=== PATIENT | female | born 1960 | race Caucasian/White ===

== ENCOUNTER 2019-01-15 11:53 | Observation (INO) ==
[2019-01-15 12:41] LABS: Basophils # 0.1 K/mcL (0.0-0.2); Eosinophils # 0.1 K/mcL (0.0-0.6); Eosinophils % 2.2 %; Hematocrit 41.2 % (35.3-44.9); Hemoglobin 13.7 g/dL (11.5-15.4); Immature Granulocytes % 0.5 % (0-4); Lymphocytes # 2.4 K/mcL (0.6-4.6); Lymphocytes % 40.7 %; Mean Corpuscular HGB Conc 33.3 g/dL (31.6-35.5); Mean Corpuscular Hemoglobin 30.4 pg (28.0-33.3); Mean Corpuscular Volume 91.6 fL (83.0-100.0); Mean Platelet Volume 9.6 fL (9.4-12.4); Monocytes # 0.6 K/mcL (0.0-1.3); Monocytes % 9.2 %; Neutrophils # 2.8 K/mcL (1.6-8.9); Platelet Count 344 K/mcL (140-400); Segmented Neutrophils % 46.4 %
[2019-01-15 12:52] LABS: Prothrombin Time 11.4 Seconds (9.4-12.1)
[2019-01-15 12:55] LABS: Activated Partial Thrombo Time 30.5 Seconds (26.0-36.0)
[2019-01-15] MEDS ORDERED: Aspirin 81 MG TAB.CHEW PO SCH (13:15)
[2019-01-15 13:17] LABS: BUN/Creatinine Ratio 19 (6-26); Blood Urea Nitrogen 14 mg/dL (6-20); Calcium 10.4 mg/dL (8.6-10.3); Carbon Dioxide 26 mEq/L (23-29); Chloride 105 mEq/L (98-107); Glucose 99 mg/dL (70-105); Osmolality,Calculated 291 (280-300); Potassium 4.1 mEq/L (3.5-5.1); Sodium 140 mEq/L (136-145); Troponin I < 0.03 ng/mL (< 0.04); eGFR For African Americans > 60 (> 60); eGFR For Non-African Americans > 60 (> 60)
--- NOTE | 2019-01-15 14:32 | Emergency Department Note ---
Disposition Clinical Impression: Chest pain Qualifiers: Chest pain type: unspecified Qualified Code(s): R07.9 - Chest pain, unspecified Disposition: Admitted As Inpatient Condition: Good Time of Disposition: 14:00 Chest Pain HPI - General Chief Complaint: ED Chest Pain Stated Complaint: chest pain Time Seen by Provider: 01/15/19 12:45 Source: patient Mode of arrival: ambulatory Limitations: no limitations Vital Signs Reviewed: Yes Nursing Notes Reviewed: Yes - History of Present Illness Severity scale (1-10): 3 - Related Data Home Medications Medication Instructions Recorded Confirmed No Known Home Drugs 01/15/19 01/15/19 Allergies Allergy/AdvReac Type Severity Reaction Status Date / Time No Known Allergies Allergy Verified 01/15/19 12:04 All systems ED: reviewed and negative except as stated. Review of Systems: As Per HPI Chest Pain PMH - Past Medical History Medical history: Reports: hypertension Course Vital Signs Temperature 98.1 F 01/15/19 12:03 Pulse Rate 76 01/15/19 12:03 Respiratory Rate 18 01/15/19 12:03 Blood Pressure 143/80 01/15/19 12:03 O2 Sat by Pulse Oximetry 95 01/15/19 12:03 Temperature 97.9 F 01/16/19 11:16 Pulse Rate 61 01/16/19 11:16 Respiratory Rate 16 01/16/19 11:16 Blood Pressure 133/82 01/16/19 11:16 O2 Sat by Pulse Oximetry 96 01/16/19 11:16 Oxygen Delivery Oxygen Delivery Room Air Chest Pain - Lab Data Result diagrams: 01/16/19 04:03 01/16/19 04:03 Lab Results 01/15/19 01/15/19 01/15/19 Range/Units 12:10 12:10 12:10 WBC 6.0 (4.3-11.1) K/mcL RBC 4.50 (3.82-4.97) M/mcL Hgb 13.7 (11.5-15.4) g/dL Hct 41.2 (35.3-44.9) % MCV 91.6 (83.0-100.0) fL MCH 30.4 (28.0-33.3) pg MCHC 33.3 (31.6-35.5) g/dL RDW 12.0 (11.5-14.5) % Plt Count 344 (140-400) K/mcL MPV 9.6 (9.4-12.4) fL Immature Gran % 0.5 (0-4) % Seg Neutrophils % 46.4 % Lymphocytes % 40.7 % Monocytes % 9.2 % Eosinophils % 2.2 % Basophils % 1.0 % Neutrophils # 2.8 (1.6-8.9) K/mcL Lymphocytes # 2.4 (0.6-4.6) K/mcL Monocytes # 0.6 (0.0-1.3) K/mcL Eosinophils # 0.1 (0.0-0.6) K/mcL Basophils # 0.1 (0.0-0.2) K/mcL PT 11.4 (9.4-12.1) Seconds INR 1.0 APTT 30.5 (26.0-36.0) Seconds Sodium 140 (136-145) mEq/L Potassium 4.1 (3.5-5.1) mEq/L Chloride 105 (98-107) mEq/L Carbon Dioxide 26 (23-29) mEq/L BUN 14 (6-20) mg/dL Creatinine 0.74 (0.60-1.20) mg/dL Est GFR ( Amer) > 60 (> 60) Est GFR (Non-Af Amer) > 60 (> 60) BUN/Creatinine Ratio 19 (6-26) Glucose 99 (70-105) mg/dL Calculated Osmolality 291 (280-300) Calcium 10.4 H (8.6-10.3) mg/dL Troponin I < 0.03 (< 0.04) ng/mL Attestation Statement - Attestation Attestation: I, Hilario Guzman, examined this patient and my medical decision-making was reviewed with the TRAFFIC ENUMERATOR/PA/Advanced Practice Nurse/Resident Physician. I agree with the documented findings, disposition and treatment plan as described except to the extent set forth below. 58 you female presents to the ED after acute onset cp. Pt reports pain was central chest, without radiation. +associated SOB and nausea but without associated diaphoresis or palpitiations or syncope. Denies recent fever, chills, trauma. +multiple similar episodes over the past two months but she has not been evaluated by cardiology. Pt took ASA and nitro prior to arrival which relieved her pain. No history of previous cardiac disease. +history of htn but denies HLD, DM, tobacco abuse. Family history of CAD in grandfather and the brother has amyloidosis. I reviewed the EKG with the resident and agree with t sonya interpretation. Initial troponin was negative. Patient has heart score of 4. She will be admitted to the hospitalist for further care and evaluation.
[2019-01-15] MEDS ORDERED: Acetaminophen 325 MG TABLET PO ONE (14:59)
[2019-01-15] MEDS ORDERED: Naloxone 0.4 MG/ML INJ IVP PRN (15:24)
[2019-01-15] MEDS ORDERED: Ondansetron 4 MG/2 ML VIAL IVP PRN (15:24)
[2019-01-15] MEDS ORDERED: *HR* HYDROcodone/Acet 5/325 mg TABLET PO PRN (15:24)
--- NOTE | 2019-01-15 15:24 | Emergency Department Note ---
Disposition Clinical Impression: Chest pain Qualifiers: Chest pain type: unspecified Qualified Code(s): R07.9 - Chest pain, unspecified Disposition: Admitted As Inpatient Condition: Good Time of Disposition: 15:38 General Adult HPI - General Chief complaint: ED Chest Pain Stated complaint: chest pain Time Seen by Provider: 01/15/19 12:45 Source: patient Mode of arrival: ambulatory Limitations: no limitations Nursing Notes Reviewed: Yes Vital Signs Reviewed: Yes - History of Present Illness HPI Narrative: Female patient presenting complaints from complaining of right-sided chest pain. Did have associated nausea with the pain earlier. Lasted around 15 minutes. Did take 2 baby aspirin at home and a nitroglycerin glycerin with relief of the pain. No cardiac history for herself however her only history is positive for this. Has never had a cardiac evaluation. She states that she is feeling better at this time. Did have associated shortness of breath while the pain was there but is gone at this time. Also the like her heart was "flip flopping" while the pain was present. Patient reports the pain started when she was g etting ready to leave the house. She reports she was not under any increased stress recently. She is not exercising. Pain Scale: 3 - Related Data Home Medications Medication Instructions Recorded Confirmed No Known Home Drugs 01/15/19 01/15/19 Allergies Allergy/AdvReac Type Severity Reaction Status Date / Time No Known Allergies Allergy Verified 01/15/19 12:04 All systems ED: reviewed and negative except as stated. Review of Systems: As Per HPI Constitutional: Denies: fever, chills Cardiovascular: Reports: chest pain, palpitations. Denies: syncope Respiratory: Denies: cough, dyspnea Gastrointestinal: Reports: nausea (When she was having the pain earlier.). Denies: abdominal pain, vomiting, diarrhea Past Medical History - Past Medical History Attestation: Yes The following information was validated with the patient. Source: patient Medical history: Reports: hypertension Physical Exam - General Limitations: no limitations General appearance: alert, in no apparent distress - Head Head exam: atraumatic, normocephalic, normal inspection - Eye Eye exam: Present: normal appearance, PERRL, EOMI - ENT ENT exam: normal exam, normal oropharynx, mucous membranes moist - Neck Neck exam: Present: normal inspection, full ROM, trachea midline - Chest Chest inspection: Present: normal inspection, symmetric chest wall rise - Respiratory Respiratory exam: Present: normal lung sounds bilaterally - Cardiovascular Cardiovascular exam: Present: regular rate, normal rhythm, normal heart sounds - Abdominal Exam Abdominal exam: Present: soft, Non-Tender. Absent: tenderness, distention, guarding, rebound, rigidity - Extremities Exam Extremities exam: Present: normal inspection, full ROM, normal capillary refill. Absent: tenderness, pedal edema, calf tenderness - Back Exam Back exam: Present: normal inspection, full ROM. Absent: tenderness, CVA tenderness (R), CVA tenderness (L) - Neurological Exam Neurological exam: Present: alert, oriented X3 - Psychiatric Psychiatric exam: Present: normal affect, normal mood - Skin Skin exam: Present: warm, dry, intact, normal color. Absent: rash, cyanosis, diaphoresis Course Course Narrative: Patient appears well resting in bed at this time. Does have a history of the pain previously. Story is concerning for possible cardiac cause. No signs of acute ischemia however on EKG. She is in the normal sinus rhythm does have a sinus arrhythmia. Symptoms have resolved with aspirin and nitroglycerin use. We did provide her with 2 more aspirin she took 2 at home. We did discuss options with the patient and family and they are agreeable with admission for further cardiac evaluation today. We will admit patient to the hospital for f urther evaluation. Initial troponin was negative. Chest x-ray is not concerning. Vital Signs Temperature 98.1 F 01/15/19 12:03 Pulse Rate 76 01/15/19 12:03 Respiratory Rate 18 01/15/19 12:03 Blood Pressure 143/80 01/15/19 12:03 O2 Sat by Pulse Oximetry 95 01/15/19 12:03 Temperature 98.1 F 01/15/19 12:03 Pulse Rate 55 01/15/19 14:33 Respiratory Rate 16 01/15/19 14:33 Blood Pressure 115/97 01/15/19 14:33 O2 Sat by Pulse Oximetry 98 01/15/19 13:49 Oxygen Delivery Oxygen Delivery Room Air Medical Decision Making - Medical Records Medical records reviewed: Yes I reviewed the patient's medical records. - Lab Data Lab results reviewed: Yes I reviewed the patient's lab results. Result diagrams: 01/15/19 12:10 01/15/19 12:10 Lab Results 01/15/19 01/15/19 01/15/19 Range/Units 12:10 12:10 12:10 WBC 6.0 (4.3-11.1) K/mcL RBC 4.50 (3.82-4.97) M/mcL Hgb 13.7 (11.5-15.4) g/dL Hct 41.2 (35.3-44.9) % MCV 91.6 (83.0-100.0) fL MCH 30.4 (28.0-33.3) pg MCHC 33.3 (31.6-35.5) g/dL RDW 12.0 (11.5-14.5) % Plt Count 344 (140-400) K/mcL MPV 9.6 (9.4-12.4) fL Immature Gran % 0.5 (0-4) % Seg Neutrophils % 46.4 % Lymphocytes % 40.7 % Monocytes % 9.2 % Eosinophils % 2.2 % Basophils % 1.0 % Neutrophils # 2.8 (1.6-8.9) K/mcL Lymphocytes # 2.4 (0.6-4.6) K/mcL Monocytes # 0.6 (0.0-1.3) K/mcL Eosinophils # 0.1 (0.0-0.6) K/mcL Basophils # 0.1 (0.0-0.2) K/mcL PT 11.4 (9.4-12.1) Seconds INR 1.0 APTT 30.5 (26.0-36.0) Seconds Sodium 140 (136-145) mEq/L Potassium 4.1 (3.5-5.1) mEq/L Chloride 105 (98-107) mEq/L Carbon Dioxide 26 (23-29) mEq/L BUN 14 (6-20) mg/dL Creatinine 0.74 (0.60-1.20) mg/dL Est GFR ( Amer) > 60 (> 60) Est GFR (Non-Af Amer) > 60 (> 60) BUN/Creatinine Ratio 19 (6-26) Glucose 99 (70-105) mg/dL Calculated Osmolality 291 (280-300) Calcium 10.4 H (8.6-10.3) mg/dL Troponin I < 0.03 (< 0.04) ng/mL - Radiology Data Radiology results reviewed: Yes I reviewed the patient's radiology results. Chest X-Ray 01/15/19 12:05 IMPRESSION: No acute process. D/ / Guero Kim MD / Guero Kim MD Interpreting Provider: Guero Kim MD - EKG Data EKG #1 EKG attestation: Yes I reviewed and interpreted this EKG. EKG results narrative: Normal sinus rhythm at a rate of 72. OR interval is 150. QRS duration is 94. QT is 375. QTC is 399. No signs of acute ischemia. Good R-wave progression. No signs of WPW or Brugada. Heart Score - Score History: Highly Suspicious EKG: Normal Age: 45-65 Risk Factors: 1-2 risk factors Troponin: Less than normal limit HEART Score Total: 4
[2019-01-15] MEDS ORDERED: Nitroglycerin 0.4 MG TAB.SUBL SL PRN (15:27)
--- NOTE | 2019-01-15 15:30 | Internal Med History&Physical ---
Date of Encounter: 01/15/19 Time of Encounter: 15:30 Internal Medicine - H&P: HPI Chief complaint: CP Admitted From: Emergency Dept Plans for Post Hospital Care: Home History of present illness: Ms. Haq is a 58 year old female Asked medical history of hypertension however currently controlled is not on any medications. Patient has been in her usual state of health Presented to [facility] after experiencing sudden onset of right chest pain. Pain has been present off and on for day past month occurring mostly with daily activities lasting approximately 10-12 minutes resolving after taking baby aspirin describing pain as sharp and intermittent. Today patient states that she was completing daily activities and again experienced a sharp pinching-like pain in her right chest nonradiating with associated symptoms of nausea shortness of breath lasting approximately 12-15 minutes she did take some baby aspirin without any relief and then took nitroglycerin which did relieve her pain. She presented to [facility] ED with the above complaints initial troponin was negative EKG with no ST-T wave abnormalities chest x-ray with no acute process. Patient has been admitted for further work up and evaluation of chest pain. Currently patient is chest pain- free I did discuss CODE STATUS with the patient verbalized she would like to be a full code. Past Med Surg Social Fam HX - Past Medical History Medical history: hypertension - Family History Father Hx Family Cardiac Disorders: Yes Internal Medicine - H&P: Meds No Known Home Drugs 01/15/19 [History] Allergy/AdvReac Type Severity Reaction Status Date / Time No Known Allergies Allergy Verified 01/15/19 12:04 All Systems PM: A 10-system review of systems was performed and is negative for pertinent findings except as documented above in the HPI. - Constitutional Constitutional: no chills, no fever(s), no night sweats - EENT Eyes: no change in vision, no discharge, no pain, no photophobia Nose, mouth and throat: no dysphagia, no nasal discharge, no neck pain, no sore throat - Cardiovascular Cardiovascular ROS IM: chest pain - Respiratory Respiratory: no cough, no dyspnea, no wheezing, no excessive phlegm production - Gastrointestinal Gastrointestinal: no abdominal pain, no diarrhea, no hematemesis, no hemato chezia, no melena, no nausea, no vomiting - Genitourinary Genitourinary: no change in urinary stream, no dysuria, no flank pain, no hematuria - Musculoskeletal Musculoskeletal ROS IM: no numbness, no tingling - Integumentary Integumentary IM: no rash, no unusual bruising - Neurological Neurological ROS: no confusion, no convulsions, no focal weakness, no numbness, no tingling, no tremor(s) - Hematologic/Lymphatic Hematologic/Lymphatic: no easy bruising - Constitutional Vitals: Temp Pulse Resp BP Pulse Ox 98.1 F 55 16 115/97 98 01/15/19 12:03 01/15/19 14:33 01/15/19 14:33 01/15/19 14:33 01/15/19 13:49 General appearance: Present: A&O X 3 Exam: . - Head Head exam: Present: atraumatic, normocephalic - Eye Eye exam: Present: PERRL, conjuntiva pink, sclera anicteric Pupils: Present: PERRL - Neck Neck exam general surgery: Present: supple, trachea midline. Absent: lymphadenopathy - Respiratory Respiratory exam: Present: CTAB. Absent: accessory muscle use, rales, rhonchi, wheezes - Cardiovascular Cardiovascular exam: Present: RRR, +S1, +S2. Absent: diastolic murmur, gallop, rubs, systolic murmur - GI/Abdominal GI/Abdominal exam: Present: normal bowel sounds, soft, no peritoneal signs. Absent: distended, tenderness - Extremities Exam Extremities exam: Present: warm, radial pulses palpable and symmetrical. Absent: calf tenderness, cyanotic, pedal edema - Neurological Exam Neurological exam: Present: CN II-XII intact, oriented X3, no focal deficits. Absent: pronater drift, facial droop, speech deficit - Skin Skin exam: Present: dry, intact Internal Med - H&P Results - Labs CBC & Chem 7: 01/15/19 12:10 01/15/19 12:10 Labs: Short CBC 01/15/19 Range/Units 12:10 WBC 6.0 (4.3-11.1) K/mcL Hgb 13.7 (11.5-15.4) g/dL Hct 41.2 (35.3-44.9) % Plt Count 344 (140-400) K/mcL Neutrophils # 2.8 (1.6-8.9) K/mcL BMP 01/15/19 12:10 Sodium 140 Potassium 4.1 Chloride 105 Carbon Dioxide 26 BUN 14 Creatinine 0.74 Glucose 99 Calcium 10.4 H Cardiac Enzymes 01/15/19 Range/Units 12:10 Troponin I < 0.03 (< 0.04) ng/mL - EKG Data EKG shows normal: sinus rhythm - EKG Data Interpretation IM: normal EKG - Impressions ITS Impressions Chest X-Ray 01/15/19 12:05 IMPRESSION: No acute process. D/ / Guero Kim MD / Guero Kim MD Interpreting Provider: Guero Kmi MD - Diagnostic Studies Chest x-ray Additional comments: Chest X-Ray 01/15/19 12:05 IMPRESSION: No acute process. D/ / Guero Kim MD / Guero Kim MD Interpreting Provider: Guero Kim MD - Assessment and Plan (1) Chest pain Current Visit: Yes Status: Acute Assessment and plan: Pain has been present off and on for day past month occurring mostly with daily activities lasting approximately 10-12 minutes resolving after taking baby aspirin describing pain as sharp and intermittent. Today patient states that she was completing daily activities and again experienced a sharp pinching-like pain in her right chest nonradiating with associated symptoms of nausea shortness of breath lasting approximately 12-15 minutes she did take some baby aspirin without any relief and then took nitroglycerin which did relieve her pain. Currently she is chest pain-free We will continue with aspirin Check lipid profile Nitroglycerin as needed for chest pain Continuous cardiac monitoring And cardiac echo Patient will be nothing by mouth after midnight for cardiac stress test in the a.m. Qualifiers: Chest pain type: unspecified Qualified Code(s): R07.9 - Chest pain, u nspecified (2) HTN (hypertension) Current Visit: Yes Status: Acute Assessment and plan: Currently stable will monitor - states that she is currently not on any medications Qualifiers: Hypertension type: essential hypertension Qualified Code(s): I10 - Essential (primary) hypertension (3) DVT prophylaxis Current Visit: Yes Status: Acute Assessment and plan: Patient is ambulatory - Time Spent With Patient Total time spent is greater than 50% in coordination of care (as documented) at patient's floor/unit and/or counseling patient:
[2019-01-16 05:27] LABS: Basophils # 0.1 K/mcL (0.0-0.2); Basophils % 1.1 %; Eosinophils # 0.2 K/mcL (0.0-0.6); Eosinophils % 3.4 %; Hematocrit 40.1 % (35.3-44.9); Hemoglobin 13.2 g/dL (11.5-15.4); Immature Granulocytes % 0.3 % (0-4); Lymphocytes # 2.5 K/mcL (0.6-4.6); Lymphocytes % 39.6 %; Mean Corpuscular HGB Conc 32.9 g/dL (31.6-35.5); Mean Corpuscular Hemoglobin 30.3 pg (28.0-33.3); Mean Corpuscular Volume 92.2 fL (83.0-100.0); Mean Platelet Volume 9.7 fL (9.4-12.4); Monocytes # 0.7 K/mcL (0.0-1.3); Monocytes % 10.4 %; Neutrophils # 2.8 K/mcL (1.6-8.9); Platelet Count 318 K/mcL (140-400); Red Blood Count 4.35 M/mcL (3.82-4.97); Segmented Neutrophils % 45.2 %; White Blood Count 6.2 K/mcL (4.3-11.1)
[2019-01-16 05:51] LABS: BUN/Creatinine Ratio 19 (6-26); Blood Urea Nitrogen 14 mg/dL (6-20); Calcium 10.2 mg/dL (8.6-10.3); Carbon Dioxide 26 mEq/L (23-29); Chloride 104 mEq/L (98-107); Chol/HDL Ratio 5.3 (0-4.9); Cholesterol 229 mg/dL (< 200); Glucose 101 mg/dL (70-105); HDL Cholesterol 43 mg/dL (40-59); LDL Cholesterol,Calculated 151 mg/dL (0-99); Magnesium 2.4 mg/dL (1.6-2.6); Osmolality,Calculated 297 (280-300); Potassium 3.9 mEq/L (3.5-5.1); Sodium 143 mEq/L (136-145); Triglycerides 173 mg/dL (< 150); eGFR For African Americans > 60 (> 60); eGFR For Non-African Americans > 60 (> 60)
[2019-01-16] MEDS ORDERED: Regadenoson 0.4 MG/5 ML SYRINGE IVP ONE (06:22)
[2019-01-16] MEDS ORDERED: Aspirin 81 MG TAB.CHEW PO SCH (09:00)
[2019-01-16 11:20] VITALS: BP 133/82
--- NOTE | 2019-01-16 12:07 | Discharge Summary ---
- NOTES TO OUTPATIENT PROVIDER Notes to Outpatient Provider: Presented with chest pain cardiac workup was negative encouraged lifestyle changes of low fat low cholesterol diet-May benefit from EGD as outpatient for possible GERD workup Orders not resulted at time of discharge: Pending orders 01/15/19 15:29 NM kimberlee perf SPECT multi [NM] Routine 01/16/19 06:00 ECG 12 lead ECG [ECG] AM 0600 Date of Encounter: 01/16/19 Time of Encounter: 12:03 - Discharge Diagnosis (1) Chest pain Priority: Primary Status: Acute Qualifiers: Chest pain type: unspecified Qualified Code(s): R07.9 - Chest pain, unspecified (2) HTN (hypertension) Priority: Secondary Status: Acute Qualifiers: Hypertension type: essential hypertension Qualified Code(s): I10 - Essential (primary) hypertension Hospital course: Ms. Haq is a 58 year old female past medical history of hypertension which she states is controlled and is currently not a medications.Sudden onset of right chest pain. Pain has been present off and on for day past month occurring mostly with daily activities lasting approximately 10-12 minutes resolving after taking baby aspirin describing pain as sharp and intermittent. Today patient states that she was completing daily activities and again experienced a sharp pinching-like pain in her right chest nonradiating with associated symptoms of nausea shortness of breath lasting approximately 12-15 minutes she did take some baby aspirin without any relief and then took nitroglycerin which did relieve her pain. She presented to [facility] ED with the above complaints initial troponin was negative EKG with no ST-T wave abnormalities chest x-ray with no acute process. Patient underwent cardiac stress test which was negative for any ischemia or infarct troponins were negative 3 echo was normal with preserved EF. Advised patient to follow-up as outpatient with primary care provider possible EGD to rule out possible GERD. Currently she is chest pain- free and hemodynamically stable and ready for discharge. - Time Spent with Patient Total time spent providing and/or coordinating discharge services: - Discharge Medications Prescriptions: No Action No Known Home Drugs 1 each .ROUTE AD each Home Medications: No Known Home Drugs 01/15/19 [History] Allergies/Adverse Reactions: Allergy/AdvReac Type Severity Reaction Status Date / Time No Known Allergies Allergy Verified 01/15/19 12:04 Date of admission: 01/15/19 14:35 Primary care physician: Danny Mello MD Discharging clinician: Dara Brandt Anticipated date of discharge: 01/16/19 - Constitutional Vitals: Temp Pulse Resp BP Pulse Ox 97.9 F 61 16 133/82 96 01/16/19 11:16 01/16/19 11:16 01/16/19 11:16 01/16/19 11:16 01/16/19 11:16 General appearance: Present: A&O X 3 Exam: Skin: Free of rash and discoloration. Eyes: Sclera is white. There is no discharge from eyes. ENMT: Oral/pharyngeal mucosa is normal in appearance. There is no discharge from nose or ears. Respiratory: Normal breath sounds with no crackles and wheezes bilaterally. CV: Heart is regular with no gallop or murmur. GI: Abdomen is flat and soft with no palpable mass or visceromegaly. : There is no tenderness in patient's flanks bilaterally. Neuro exam: He has good strength in upper and lower extremities. He has normal eye movements. Psychiatric: He has normal affect. His thought process is appropriate to the situation. - Patient Status Disposition: Home, Self-Care Condition: Good Functional capacity at discharge: independent ambulation Overall status at discharge: patient is back to baseline - Discharge Instructions Follow Up With: Danny Mello MD [Primary Care Provider] - 01/22/19 1:30 pm () Forms: ED Satisfaction Letter - Diet and Activity Activity: increase activity as tolerated Diet: advance to your usual diet
--- NOTE | 2019-01-17 12:50 | Electrocardiograph Report ---
[place] [facility] Test Date: 2019-01-15 Pat Name: Goldie Haq Department: 104 Room: 3B33 Gender: F [place] Hand: : 1960 Requested By: Kelly Guzman Order Number: [id number] Reading MD: Ever Blanchard Measurements Intervals [place] Rate: 72 P: 36 MO: 150 QRS: 12 QRSD: 94 T: 54 QT: 375 QTc: 399 Interpretive Statements SINUS RHYTHM Electronically Signed On 01-17-2019 12:49:12 EDT by Ever Blanchard
== END 2019-01-16 13:28 | disposition home or self-care (01) ==
LOC: EMEROOARM 11:53 → 3BNU 11:53
PROVIDERS: ADMIT Internal Medicine Nephrology; ATTEND Internal Medicine Nephrology